=== PATIENT | male | born 1975 | race Hispanic/Latino ===

== ENCOUNTER → 2018-05-30 11:54 | Outpatient (CLI) | payer OTHER, SELFPAY ==
--- NOTE | 2018-05-30 | DI.MRI.S_ITS ---
PROCEDURE: MR LUMBAR SPINE WO/W CON INDICATIONS: LUMBAR STENOSIS WITH NEUROGENIC CLAUDICATION TECHNIQUE: Noncontrast sagittal T1 spin echo and T2 fast spin echo, sagittal STIR, axial T1 and T2 fast spin echo through the lumbar spine. In cases with scoliosis, additional coronal T2 fast spin echo may be performed. After the administration of contrast, sagittal and axial T1 spin echo with fat saturation through the lumbar spine. COMPARISON: [facility], MR, L-SPINE W&WO CONTRAST, 02/18/2017, 7:21. [facility], CR, L-SPINE 2-3 VIEWS, 12/06/2009, 9:43. [facility], CR, L-SPINE 2-3 VIEWS, 10/03/2017, 13:52. FINDINGS: Image quality: Diagnostic, with note made of motion artifact. Alignment and curvature: There is normal bony alignment. Marrow: Marrow is of normal overall signal. No acute vertebral body compression fractures. No suspicious marrow enhancement. Spinal cord: Conus medullaris terminates at the L1 level. Visualized spinal cord demonstrates normal signal, without suspicious enhancement. Paraspinous soft tissues: No paravertebral masses or abnormal enhancement. T12-L1: Normal appearance. L1-L2: Normal appearance. L2-L3: Mild loss of disc height is seen. Loss of disc signal is seen. Mild generalized disc bulge is seen. There is moderate left-sided and minimal right-sided neural foraminal narrowing seen. Minimal central canal narrowing is seen. An annular fissure is seen posteriorly, as on series 4 image 10. The previously seen disc extrusion is no longer seen. L3-L4: Moderate disc bulge is seen, with a mild central disc protrusion, as on series 5 image 21. Mild to moderate bilateral neural foraminal narrowing is seen, left worse than right. Mild to moderate central canal narrowing is seen. These degenerative changes have slightly progressed compared to the prior examination. L4-L5: Postoperative changes are seen at this level, now with bilateral pedicle screws and vertical fixation rods. A disc spacer is seen. There is associated susceptibility artifact. Apparent right hemilaminectomy changes are seen. Please correlate with operative history. Mild loss of disc height is seen. There is loss of disc signal. Moderate disc bulge is seen, with a mild central disc protrusion. Moderate bilateral neural foraminal narrowing is seen, right worse than left. No significant central canal narrowing is seen. No abnormal enhancement can be seen. The degenerative changes at this level have improved compared to the prior examination. L5-S1: The disc height is well-preserved. Loss of disc signal is seen at this level. Mild generalized disc bulge is seen. Mild facet joint hypertrophy is seen. No significant neural foraminal or central canal narrowing are seen. An annular fissure can be seen posteriorly, as on series 2 image 9. Stable from the prior study. IMPRESSION: Since the prior MRI examination, postoperative change has taken place at the L4-L5 level. No abnormal enhancement or other postoperative complication can be seen. Improvement in the disc extrusion at L2-L3 since the prior MRI. Slight progression of degenerative change at L3-L4 compared to the prior MRI. Dictated by: Chai Acevedo M.D. on 05/30/2018 at 13:02 Approved by: Chai Acevedo M.D. on 05/30/2018 at 13:11
== END ==
PROVIDERS: PCP Physician Assistant Medical; Visit Provider Physical Medicine & Rehabilitation
DX: M48.062 Spinal stenosis, lumbar region with neurogenic claudication (principal)
CPT/HCPCS: 72158; A9579

== ENCOUNTER → 2018-06-10 14:10 | Outpatient (CLI) | payer OTHER, SELFPAY ==
--- NOTE | 2018-06-10 | DI.CT.S_ITS ---
PROCEDURE: CT LUMBAR SPINE WO CON INDICATIONS: ARTHRITIS LUMBAR SPINE TECHNIQUE: Noncontrast 3 mm thick sections acquired from the T12 level to the sacrum. Sagittal and coronal reformats were constructed. For radiation dose reduction, the following was used: automated exposure control. COMPARISON: [facility], MR, MR LUMBAR SPINE WO/W CON, 05/30/2018, 12:18. [facility], CR, XR LUMBAR SPINE 2 OR 3 VIEWS, 05/08/2018, 13:38. FINDINGS: Image quality: Excellent. Bones: There is trace L2-L3 retrolisthesis.. Postsurgical changes compatible with L4 and L5 posterior and interbody fusion are noted. Orthopedic hardware is intact. No lucency is identified at the bone hardware interface. Postsurgical changes compatible with right L4 hemilaminectomy and right L4-L5 partial facetectomy noted. No acute vertebral body compression fractures. No suspicious lytic or blastic bony lesions. Central spinal caliber is of normal overall caliber. No pars defects. T12-L1: Normal appearance. L1-L2: Normal appearance. L2-L3: Disc height is normal. Mild, diffuse disc bulge. No central stenosis. Mild right and [id number] left neural foraminal narrowing. No definite neural impingement. L3-L4: Disc height is normal. Mild, diffuse disc bulge. Small central disc protrusion. Mild to moderate narrowing of the central canal. Mild bilateral neural foraminal narrowing. No definite neural impingement. L4-L5: Status post fusion. Mild left facet hypertrophy. No central stenosis. Moderate bilateral neural foraminal narrowing. No definite neural impingement. L5-S1: Disc height is normal. Mild, diffuse disc bulge. Mild bilateral facet hypertrophy. Mild narrowing of the central canal. No neural foraminal narrowing. No definite neural impingement. Soft tissues: No retroperitoneal masses or hematomas. Visualized aorta is normal in caliber. IMPRESSION: 1. Postsurgical changes compatible with L4-L5 fusion. 2. Mild multilevel degenerative disc disease. 3. Mild left L4-L5 and bilateral L5-S1 facet arthropathy. 4. Mild to moderate L3-L4 central canal narrowing. Mild L5-S1 central canal narrowing. 5. Moderate bilateral L4-L5 neural foraminal narrowing. Mild right and mild to moderate left L2-L3 neural femoral narrowing. Mild bilateral L3-L4 neural foraminal narrowing. Dictated by: Nereyda Bass MD, PhD on 06/10/2018 at 16:56 Approved by: Nereyda Bass MD, PhD on 06/10/2018 at 17:05
== END ==
PROVIDERS: PCP Physician Assistant Medical; Visit Provider Orthopaedic Surgery
DX: M47.816 Spondylosis without myelopathy or radiculopathy, lumbar region (principal); M47.817 Spondylosis without myelopathy or radiculopathy, lumbosacral region; M51.36 Other intervertebral disc degeneration, lumbar region; M51.37 Other intervertebral disc degeneration, lumbosacral region; M48.061 Spinal stenosis, lumbar region without neurogenic claudication; M48.07 Spinal stenosis, lumbosacral region; Z98.1 Arthrodesis status
CPT/HCPCS: 72131

== ENCOUNTER 2018-08-20 12:13 | Emergency (ER) | payer OTHER, SELFPAY ==
[2018-08-20 12:26] VITALS: BP 150/83; PULSE 91; RESP 20; TEMP 36.8; O2SAT 100; BMI 30.8
--- NOTE | 2018-08-20 12:39 | ED.GENADULT ---
HPI - General Adult General Chief complaint: Diabetic Problem Stated complaint: blood sugar all messed up Time Seen by Provider: 08/20/18 12:23 Source: patient Mode of arrival: ambulatory Limitations: no limitations History of Present Illness HPI narrative: This is a 43-year-old male comes to the emergency department with low blood sugar. Patient states he is not feeling well feels like he is almost withdrawing off of his depression medication. Patient states that he had a McMuffin at about 10 30 this morning he states that he is feeling fatigued and just not well. He denies any chest pain, no shortness of breath, no nausea or vomiting no recent GI issues. He states he does have some issues with starting and stopping urination and is also noticed some blood in his sperm occasionally. Urinary issues have been for several months. Blood in his semen has been for the last week or 2. Patient states that he takes metformin and had glipizide added on a couple months ago. He also had atorvastatin and a blood pressure medications started in the last month. His physician is also been weaning down his venlafaxine has not been helpful for his depression and they are going to start duloxetine tomorrow. Patient states that he was on Zoloft before but states it was not helping his depression. He has had suicidal ideation in the past but denies any currently. He denies any attempts or intent to hurt himself or others. He states he has been feeling quite depressed and has not been improving with medication. Patient has follow-up for a counselor but not until the end of the month. Related Data Home Medications Medication Instructions Recorded Confirmed metformin 1,000 mg PO BID #0 03/21/11 08/20/18 buspirone 7.5 mg PO BID #0 10/01/17 08/20/18 gabapentin [Neurontin] 1,200 mg PO BEDTIME #0 10/01/17 08/20/18 alprazolam 0.25 - 0.5 mg PO BID PRN 08/20/18 08/20/18 atorvastatin 20 mg PO BEDTIME 08/20/18 08/20/18 duloxetine 60 mg PO DAILY 08/20/18 08/20/18 glipizide 5 mg PO QAM 08/20/18 08/20/18 losartan 50 mg PO DAILY 08/20/18 08/20/18 tizanidine 2 - 4 mg PO BID PRN 08/20/18 08/20/18 venlafaxine 75 mg PO DAILYX3 08/20/18 08/20/18 Previous Rx's Medication Instructions Recorded ciprofloxacin HCl 500 mg PO BID #14 tab 08/20/18 Allergies Allergy/AdvReac Type Severity Reaction Status Date / Time No Known Allergies Allergy Uncoded 11/20/17 12:13 Review of Systems Review of Systems ROS Unobtainable: All systems reviewed & are unremarkable except as noted in HPI and below Constitutional Denies chills, Reports difficulty sleeping, Denies fever(s), Denies lethargy, Reports poor appetite and Denies weakness Cardiovascular Denies chest pain, Denies irregular heart rhythm, Denies lightheadedness, Denies palpitations, Denies dyspnea, Denies dyspnea on exertion and Denies orthopnea Respiratory Denies chest congestion, Denies cough, Denies dyspnea, Denies dyspnea on exertion and Denies wheezing Gastrointestinal Gastrointestinal: Denies abdominal pain, Denies bloating, Denies change in bowel habits, Denies constipation, Denies diarrhea, Denies nausea and Denies vomiting Genitourinary Reports hematospermia, Reports difficulty urinating, Denies genital pain, Denies dysuria, Denies flank pain, Denies scrotal swelling, Denies testicular pain, Denies urinary frequency, Reports urinary hesitancy, Denies urinary incontinence and Denies urinary urgency Musculoskeletal Reports back pain (Chronic) Integumentary/Breasts Denies rash Neurologic Denies tremor(s) and Denies weakness Psychiatric Reports abnormal sleep pattern, Reports change in appetite, Reports depression, Denies mood swings, Denies paranoia, Denies hallucinations, Denies homicidal ideation and Denies suicidal ideation Endocrine Denies palpitations Allergic/Immunologic Denies wheezing PFSH Medical History Dyslipidemia (Acute) Non-insulin dependent type 2 diabetes mellitus (Acute) Social History Smoking Status: Never smoker Exam Narrative Exam Narrative: GEN: well nourished, well appearing male, alert and oriented x 3, patient appears to be in mild distress. HEENT: Atraumatic, pupils are equal round reactive to light, extraocular movements are intact, nares are clear. HEART: Regular rate and rhythm without murmur, clicks, rubs. LUNGS:Lungs clear to auscultation, no wheezes, rales, crackles, chest moves symmetrically ABD:bowel sounds normal, soft, non-tender, no guarding, rebound, rigidity, no masses noted, no hepatosplenomegaly :No CVA tenderness MSCL: Non-tender, no muscle atrophy, muscles strength 5/5 upper and lower extremities, full range of motion, normal gait NEURO:CN 2-12 intact, sensation normal PSYCH: depression, no suicidal ideation but has had in recent past, no homicidal ideation/intent, no hallucinations, positive depression. Initial Vital Signs Initial Vital Signs: Vital Signs Temperature 98.3 F 08/20/18 12:26 Pulse Rate 91 H 08/20/18 12:26 Respiratory Rate 20 08/20/18 12:26 Blood Pressure 150/83 H 08/20/18 12:26 Pulse Oximetry 100 08/20/18 12:26 Course Orders Ordered: ED Orders 08/20/18 12:39 Ictotest Urine Stat Urinalysis and Microscopic Stat Urine Chlamydia Gonorrhea PCR Stat 08/20/18 12:40 Acetaminophen Stat Complete Blood Count AUTO DIFF Stat Comprehensive Metabolic Panel Stat Ethanol (ETOH) Stat Lipase Stat Partial Thromboplastin Time Stat Prothrombin Time INR Stat Salicylate Stat Thyroid Stimulating Hormone Stat Urine Drug Screen, Rapid Stat Discontinued Medications Sodium Chloride (Normal Saline 0.9%) 500 mls @ 1,000 mls/hr IV BOLUS ONE Stop: 08/20/18 13:01 Last Infusion: 08/20/18 15:29 Dose: 0 mls/hr Admin: 08/20/18 13:06 Dose: 1,000 mls/hr Vital Signs - 8 hr 08/20/18 12:26 08/20/18 13:00 08/20/18 13:50 Temperature 98.3 F Pulse Rate 91 H 83 75 Respiratory Rate 20 13 20 Blood Pressure 150/83 H Blood Pressure [Right Arm] 147/89 H 132/81 Pulse Oximetry 100 98 99 08/20/18 14:30 08/20/18 15:00 Temperature Pulse Rate 73 85 Respiratory Rate 19 20 Blood Pressure Blood Pressure [Right Arm] 133/86 129/80 Pulse Oximetry 97 98 Medical Decision Making Lab Data Lab results reviewed: Yes I reviewed the patient's lab results. Result diagrams: 08/20/18 12:40 08/20/18 12:40 Lab Results 08/20/18 08/20/18 08/20/18 Range/Units 12:39 12:39 12:40 WBC (4.5-11.0) X10^3/uL RBC (4.5-5.9) X10^6/uL Hgb (13.5-17.5) g/dL Hct (41-53) % MCV (80-100) fL MCH (26-34) PG MCHC (30-36) % RDW (11.6-14.8) % Plt Count (150-400) X10^3/uL Neut % (Auto) (50-75) % Lymph % (Auto) (25-40) % [place] % (Auto) (3-14) % Eos % (Auto) (2-4) % Baso % (Auto) (0-2) % Neut # (Auto) (4305-4097) /uL PT (10.1-12.7) SECONDS INR (0.9-1.3) APTT (26.4-36.2) SECONDS Sodium (137-145) mmol/L Potassium (3.4-5.1) mmol/L Chloride (98-107) mmol/L Carbon Dioxide (22-32) mmol/L BUN (9-20) mg/dL Creatinine (0.66-1.25) mg/dL Estimated GFR (>60) mL/min BUN/Creatinine Ratio (6-22) Glucose (70-100) mg/dL Calcium (8.4-10.2) mg/dL Total Bilirubin (0.2-1.3) mg/dL AST (17-59) IU/L ALT (21-72) IU/L Alkaline Phosphatase (38-126) U/L Total Protein (6.3-8.2) g/dL Albumin (3.5-5.0) g/dL Globulin (1.7-4.1) g/dL Albumin/Globulin Ratio (1.0-2.8) Lipase (23-300) U/L TSH (0.47-4.68) uIU/mL Urine Color Yellow Urine Appearance Clear Urine pH 5.0 (4.5-8.0) Ur Specific [place] >=1.030 H (1.000-1.035) Urine Protein Trace H (Negative) Urine Glucose (UA) Negative (Negative) g/dL Urine Ketones Trace H (NEGATIVE) Urine Occult Blood Negative (Negative) Urine Nitrate Negative (Negative) Urine Bilirubin 1+ H (NEGATIVE) Urine Ictotest Negative (Negative) Urine Urobilinogen 2.0 H (0.2) E.U./dL Ur Leukocyte Esterase Negative (NEGATIVE) Urine RBC None seen (0-5/HPF) Urine WBC 0-1/hpf (0-5/HPF) Ur Squamous Epith Cells 0-1 /hpf Calcium Oxalate Crystal Occasional H (None) Urine Bacteria Few (2-10) H (None) Urine Mucus 1+ H (Negative) Ur Culture Indicated? Cult not indicated Micro UA Comment Not Reportable Salicylates Cancelled Urine Opiates Screen (Negative) Ur Oxycodone Screen (Negative) Urine Methadone Screen (Negative) Acetaminophen Cancelled Ur Barbiturates Screen (Negative) U Tricyclic Antidepress (Negative) Ur Phencyclidine Scrn (Negative) Ur Amphetamines Screen (Negative) U Methamphetamines Scrn (Negative) Ur MDMA Scrn (Ecstasy) (Negative) U Benzodiazepines Scrn (Negative) Urine Cocaine Screen (Negative) U Marijuana (THC) Screen (Negative) Ethyl Alcohol Ur Chlamydia DNA (PCR) Not detected N gonorrhoeae DNA (PCR) Not detected 08/20/18 08/20/18 08/20/18 Range/Units 12:40 12:40 12:40 WBC 7.5 (4.5-11.0) X10^3/uL RBC 5.10 (4.5-5.9) X10^6/uL Hgb 15.3 (13.5-17.5) g/dL Hct 44.6 (41-53) % MCV 87.5 (80-100) fL MCH 30.1 (26-34) PG MCHC 34.4 (30-36) % RDW 13.9 (11.6-14.8) % Plt Count 236 (150-400) X10^3/uL Neut % (Auto) 68.0 (50-75) % Lymph % (Auto) 21.6 L (25-40) % [place] % (Auto) 9.3 (3-14) % Eos % (Auto) 0.7 L (2-4) % Baso % (Auto) 0.4 (0-2) % Neut # (Auto) 5100 (8540-7127) /uL PT (10.1-12.7) SECONDS INR (0.9-1.3) APTT (26.4-36.2) SECONDS Sodium (137-145) mmol/L Potassium (3.4-5.1) mmol/L Chloride (98-107) mmol/L Carbon Dioxide (22-32) mmol/L BUN (9-20) mg/dL Creatinine (0.66-1.25) mg/dL Estimated GFR (>60) mL/min BUN/Creatinine Ratio (6-22) Glucose (70-100) mg/dL Calcium (8.4-10.2) mg/dL Total Bilirubin (0.2-1.3) mg/dL AST (17-59) IU/L ALT (21-72) IU/L Alkaline Phosphatase (38-126) U/L Total Protein (6.3-8.2) g/dL Albumin (3.5-5.0) g/dL Globulin (1.7-4.1) g/dL Albumin/Globulin Ratio (1.0-2.8) Lipase (23-300) U/L TSH (0.47-4.68) uIU/mL Urine Color Urine Appearance Urine pH (4.5-8.0) Ur Specific [place] (1.000-1.035) Urine Protein (Negative) Urine Glucose (UA) (Negative) g/dL Urine Ketones (NEGATIVE) Urine Occult Blood (Negative) Urine Nitrate (Negative) Urine Bilirubin (NEGATIVE) Urine Ictotest (Negative) Urine Urobilinogen (0.2) E.U./dL Ur Leukocyte Esterase (NEGATIVE) Urine RBC (0-5/HPF) Urine WBC (0-5/HPF) Ur Squamous Epith Cells Calcium Oxalate Crystal (None) Urine Bacteria (None) Urine Mucus (Negative) Ur Culture Indicated? Micro UA Comment Salicylates Urine Opiates Screen Negative (Negative) Ur Oxycodone Screen Negative (Negative) Urine Methadone Screen Negative (Negative) Acetaminophen Ur Barbiturates Screen Negative (Negative) U Tricyclic Antidepress Negative (Negative) Ur Phencyclidine Scrn Negative (Negative) Ur Amphetamines Screen Negative (Negative) U Methamphetamines Scrn Negative (Negative) Ur MDMA Scrn (Ecstasy) Negative (Negative) U Benzodiazepines Scrn Positive H (Negative) Urine Cocaine Screen Negative (Negative) U Marijuana (THC) Screen Positive H (Negative) Ethyl Alcohol Cancelled Ur Chlamydia DNA (PCR) N gonorrhoeae DNA (PCR) 08/20/18 08/20/18 08/20/18 Range/Units 12:40 12:40 12:40 WBC (4.5-11.0) X10^3/uL RBC (4.5-5.9) X10^6/uL Hgb (13.5-17.5) g/dL Hct (41-53) % MCV (80-100) fL MCH (26-34) PG MCHC (30-36) % RDW (11.6-14.8) % Plt Count (150-400) X10^3/uL Neut % (Auto) (50-75) % Lymph % (Auto) (25-40) % [place] % (Auto) (3-14) % Eos % (Auto) (2-4) % Baso % (Auto) (0-2) % Neut # (Auto) (4398-2363) /uL PT 11.4 (10.1-12.7) SECONDS INR 1.0 (0.9-1.3) APTT 31 (26.4-36.2) SECONDS Sodium 142 (137-145) mmol/L Potassium 3.6 (3.4-5.1) mmol/L Chloride 103 (98-107) mmol/L Carbon Dioxide 25 (22-32) mmol/L BUN 17 (9-20) mg/dL Creatinine 0.80 (0.66-1.25) mg/dL Estimated GFR > 60.0 (>60) mL/min BUN/Creatinine Ratio 21.3 (6-22) Glucose 88 (70-100) mg/dL Calcium 10.2 (8.4-10.2) mg/dL Total Bilirubin 1.7 H (0.2-1.3) mg/dL AST 28 (17-59) IU/L ALT 29 (21-72) IU/L Alkaline Phosphatase 84 (38-126) U/L Total Protein 7.6 (6.3-8.2) g/dL Albumin 4.6 (3.5-5.0) g/dL Globulin 3.0 (1.7-4.1) g/dL Albumin/Globulin Ratio 1.5 (1.0-2.8) Lipase 120 (23-300) U/L TSH 0.83 (0.47-4.68) uIU/mL Urine Color Urine Appearance Urine pH (4.5-8.0) Ur Specific [place] (1.000-1.035) Urine Protein (Negative) Urine Glucose (UA) (Negative) g/dL Urine Ketones (NEGATIVE) Urine Occult Blood (Negative) Urine Nitrate (Negative) Urine Bilirubin (NEGATIVE) Urine Ictotest (Negative) Urine Urobilinogen (0.2) E.U./dL Ur Leukocyte Esterase (NEGATIVE) Urine RBC (0-5/HPF) Urine WBC (0-5/HPF) Ur Squamous Epith Cells Calcium Oxalate Crystal (None) Urine Bacteria (None) Urine Mucus (Negative) Ur Culture Indicated? Micro UA Comment Salicylates < 1.0 Urine Opiates Screen (Negative) Ur Oxycodone Screen (Negative) Urine Methadone Screen (Negative) Acetaminophen < 10 L Ur Barbiturates Screen (Negative) U Tricyclic Antidepress (Negative) Ur Phencyclidine Scrn (Negative) Ur Amphetamines Screen (Negative) U Methamphetamines Scrn (Negative) Ur MDMA Scrn (Ecstasy) (Negative) U Benzodiazepines Scrn (Negative) Urine Cocaine Screen (Negative) U Marijuana (THC) Screen (Negative) Ethyl Alcohol < 10 Ur Chlamydia DNA (PCR) N gonorrhoeae DNA (PCR) Point of Care Testing Glucose POC 111 Urine Dip Bedside Urine Glucose Negative Bedside Urine Bilirubin + 1 Bedside Urine Ketone +/- 5 Urine Specific [place] 1.030 Bedside Urine Occult Blood - Negative Bedside Urine pH 5.5 Bedside Urine Protein + 30 Bedside Urine Urobilinogen 1+ 2mg Bedside Urine Nitrite - Negative Bedside Urine Leukocytes +/- 15 Esterase Point of care testing: Point of Care Testing Glucose POC 111 Urine Dip Bedside Urine Glucose Negative Bedside Urine Bilirubin + 1 Bedside Urine Ketone +/- 5 Urine Specific [place] 1.030 Bedside Urine Occult Blood - Negative Bedside Urine pH 5.5 Bedside Urine Protein + 30 Bedside Urine Urobilinogen 1+ 2mg Bedside Urine Nitrite - Negative Bedside Urine Leukocytes +/- 15 Esterase MDM Narrative Medical decision making narrative: Patient comes in with hypoglycemia. His sugar is 62. Was given apple juice as well as some other fluid Um and re-evaluated. Patient could have some hypoglycemia secondary to his metformin in addition to his glipizide. He has also had multiple medication changes in the last month and they been weaned down his venlafaxine with the intent to start duloxetine. Patient and I discussed he has continued to have depression and has not been improving he is denying any active suicidal ideation but states he has had it fairly recently in the past. He has set up an appointment for outpatient therapy/counseling but not to the end of the month. Patient has been on Zoloft prior to the other medication. Patient only drink some apple juice and some milk he did want to eat the ache salad sandwich that we offered on recheck his sugar had come down to 59. Gave him a meat sandwich as well as some more juice waited an hour and rechecked and he is now in the 100s. Patient is feeling much better he states now that his sugars are more appropriate level he also feels less depressed although he still has his chronic depression. We discussed that it could be medication interaction versus other causes. He has been having some blood in his urine and has some bacteria although no clear infection but covered him with some antibiotics and he is following up with Urology. All questions were answered, patient feels comfortable returning home. We did give them the cp it number along with suicide hotline which he says he will use if he feels that he needs a little bit more closer mental healthcare then his next follow-up tomorrow with his primary care and his counseling appointment at the end of the month Discharge Plan Departure Patient Disposition: Home Clinical Impression: Hypoglycemia, Depression, Bacteriuria Discharge Date/Time: 08/20/18 15:55 Interventions: ED Discharge Assessment Last Done: 08/20/18 15:52 Instructions: DI for Hypoglycemia Activity Restrictions/Additional Instructions: Follow-up at your appointment tomorrow with your primary care provider. Let them know about her episode of hypoglycemia. This could be secondary to taking her metformin and glipizide together. You may continue your regular metformin dosage. Hold your glipizide morning dose. Take antibiotics until they are completely gone this is for bacteria in her urine. It appears you may possibly have a bacterial infection. Keep your follow-up appointment with Urology. Your prescription was sent to the [facility] in [place]. Below is the suicide hotline number, this is also the contact number for [facility] which is a mental health team that will do a next day appointments as well as phone appointments and close follow-up with patient's. If you're feeling suicidal or having suicidal thoughts, contact the suicide hotline: . Return for having any worsening symptoms, recurrent or multiple episodes of hypoglycemia, chest pain, shortness of breath, new persistent vomiting, passing out, diaphoresis or sweating, or other new or concerning symptoms. Prescriptions: New ciprofloxacin HCl 500 mg tablet 500 mg PO BID Qty: 14 RF: 0 No Action metformin 1,000 MG tablet 1,000 mg PO BID Qty: 0 RF: 0 buspirone 7.5 MG tablet 7.5 mg PO BID Qty: 0 RF: 0 gabapentin [Neurontin] 300 MG capsule 1,200 mg PO BEDTIME Qty: 0 RF: 0 losartan 50 mg tablet 50 mg PO DAILY RF: 0 atorvastatin 20 mg tablet 20 mg PO BEDTIME RF: 0 venlafaxine 75 mg tablet 75 mg PO DAILYX3 RF: 0 tizanidine 2 mg tablet 2 - 4 mg PO BID PRN (Reason: Spasms) RF: 0 glipizide 10 mg tablet 5 mg PO QAM RF: 0 alprazolam 0.5 mg tablet 0.25 - 0.5 mg PO BID PRN (Reason: Anxiety) RF: 0 duloxetine 60 mg capsule,delayed release(DR/EC) 60 mg PO DAILY RF: 0 Referrals: Berkley Jean PA-C [Primary Care Provider] -
[2018-08-20 12:58] LABS: RBC Urine None Seen (0-5/HPF)
[2018-08-20 13:00] VITALS: BP 147/89; PULSE 83; RESP 13; O2SAT 98
[2018-08-20 13:03] LABS: Appearance Urine UA CLEAR; Bilirubin Urine UA 1+ (NEGATIVE); Color Urine UA YELLOW; Glucose Urine UA NEGATIVE (Negative); Ketones Urine UA TRACE (NEGATIVE); Leukocyte Esterase Urine UA NEGATIVE (NEGATIVE); Nitrite Urine UA NEGATIVE (Negative); Occult Blood Urine UA NEGATIVE (Negative); Protein Urine UA TRACE (Negative); Specific Gravity Urine UA >=1.030 (1.000-1.035)
[2018-08-20] MEDS: SODIUM CHLORIDE 0.9% 500 ML 1000 ML IV (13:06)
[2018-08-20 13:09] LABS: Add Manual Diff / Slide Review NO; Basophils Percent Auto 0.4 % (0-2); Eosinophils Percent Auto 0.7 % (2-4); Hematocrit 44.6 % (41-53); Hemoglobin 15.3 g/dL (13.5-17.5); Lymphocytes Percent Auto 21.6 % (25-40); Mean Corpuscular HGB Conc 34.4 % (30-36); Mean Corpuscular Hemoglobin 30.1 PG (26-34); Mean Corpuscular Volume 87.5 fL (80-100); Monocytes Percent Auto 9.3 % (3-14); Neutrophils Absolute Auto 5100 /uL (1500-7000); Platelet Count 236 X10^3/uL (150-400); Prothrombin Time 11.4 SECONDS (10.1-12.7); Red Cell Distribution Width 13.9 % (11.6-14.8); White Blood Cell Count 7.5 X10^3/uL (4.5-11.0)
[2018-08-20 13:12] LABS: PTT Partial Thromboplastin Tim 31 SECONDS (26.4-36.2)
[2018-08-20 13:14] LABS: Acetaminophen < 10 ug/mL (10-30); Alanine Aminotransferase 29 IU/L (21-72); Albumin 4.6 g/dL (3.5-5.0); Albumin Globulin Ratio 1.5 (1.0-2.8); Alkaline Phosphatase 84 U/L (38-126); Aspartate Aminotransferase 28 IU/L (17-59); BUN Creatinine Ratio 21.3 (6-22); Bilirubin Total 1.7 mg/dL (0.2-1.3); Blood Urea Nitrogen 17 mg/dL (9-20); Calcium 10.2 mg/dL (8.4-10.2); Carbon Dioxide 25 mmol/L (22-32); Chloride 103 mmol/L (98-107); Estimated Glomerular Filt Rate > 60.0 mL/min (>60); Ethanol (ETOH) < 10 mg/dL; Glucose 88 mg/dL (70-100); HEMOLYSIS < 15 (0-50); Lipase 120 U/L (23-300); Potassium 3.6 mmol/L (3.4-5.1); Sodium 142 mmol/L (137-145); Total Protein 7.6 g/dL (6.3-8.2)
[2018-08-20 13:17] LABS: Salicylate < 1.0 mg/dL (<20)
[2018-08-20 13:17] LABS: Ictotest Urine Negative (Negative); Squamous Epithelial Cell Urine 0-1 /HPF; WBC Urine 0-1/HPF (0-5/HPF)
[2018-08-20 13:18] LABS: Bacteria Urine Few (2-10); Calcium Oxalate Crystals Urine Occasional; Culture Indicated Urine Cult Not Indicated; Mucus Urine 1+ (Negative)
[2018-08-20 13:20] LABS: Urine Amphetamines Negative (Negative); Urine Barbiturates Negative (Negative); Urine Benzodiazepines Positive (Negative); Urine Cocaine Negative (Negative); Urine MDMA Negative (Negative); Urine Methadone Negative (Negative); Urine Methamphetamines Negative (Negative); Urine Morphine/Opi cutoff 2000 Negative (Negative); Urine Oxycodone Negative (Negative); Urine Phencyclidine Negative (Negative); Urine Tetrahydrocannabinol Positive (Negative); Urine Tricyclic Antidepressant Negative (Negative)
[2018-08-20 13:50] VITALS: BP 132/81; PULSE 75; RESP 20; O2SAT 99
[2018-08-20 14:01] LABS: Thyroid Stimulating Hormone 0.83 uIU/mL (0.47-4.68)
[2018-08-20 14:30] VITALS: BP 133/86; PULSE 73; RESP 19; O2SAT 97
[2018-08-20 14:31] LABS: Urine N gonorrhoeae NOT DETECTED
[2018-08-20 14:35] LABS: Urine Chlamydia NOT DETECTED
[2018-08-20 15:00] VITALS: BP 129/80; PULSE 85; RESP 20; O2SAT 98
== END 2018-08-20 15:55 | disposition home or self-care (01) ==
PROVIDERS: Emergency Provider Emergency Medicine; PCP Physician Assistant Medical
DX: E16.2 Hypoglycemia, unspecified (principal); R82.71 Bacteriuria; F32.9 Major depressive disorder, single episode, unspecified
CPT/HCPCS: 36591; 80053; 80305; 80320; 80329; 81001; 81003; 82962; 83690; 84443; 85025; 85610; 85730; 87491; 87591; 99283; G0480

== ENCOUNTER → 2019-03-26 16:30 | Outpatient (CLI) | payer OTHER, SELFPAY ==
[2019-03-26 17:34] LABS: Hemoglobin A1C% w Est Avg Glu 6.4 % (4.0-6.0)
[2019-03-26 17:59] LABS: Alanine Aminotransferase 17 IU/L (21-72); Albumin 4.5 g/dL (3.5-5.0); Albumin Globulin Ratio 1.6 (1.0-2.8); Alkaline Phosphatase 68 U/L (38-126); Aspartate Aminotransferase 25 IU/L (17-59); BUN Creatinine Ratio 21.3 (6-22); Bilirubin Total 1.5 mg/dL (0.2-1.3); Blood Urea Nitrogen 17 mg/dL (9-20); Calcium 9.9 mg/dL (8.4-10.2); Carbon Dioxide 29 mmol/L (22-32); Chloride 99 mmol/L (98-107); Estimated Glomerular Filt Rate > 60.0 mL/min (>60); Globulin 2.9 g/dL (1.7-4.1); Glucose 103 mg/dL (70-100); HEMOLYSIS < 15 (0-50); Potassium 4.3 mmol/L (3.4-5.1); Sodium 138 mmol/L (137-145); Total Protein 7.4 g/dL (6.3-8.2)
[2019-03-26 18:00] LABS: Creatinine Urine Random 176.4 mg/dL
[2019-03-26 18:04] LABS: Microalbumi Creatinin Ratio Ur 31.1 ug/mg CR (<30); Microalbumin Urine Random 5.5 mg/dL (0-1.6)
== END ==
PROVIDERS: PCP Physician Assistant Medical; Visit Provider Hospitalist
DX: E11.9 Type 2 diabetes mellitus without complications (principal)
CPT/HCPCS: 36415; 80053; 82043; 82570; 83036

== ENCOUNTER 2019-08-07 13:05 | Emergency (ER) | payer OTHER, SELFPAY ==
[2019-08-07 13:15] VITALS: BP 124/85; PULSE 75; RESP 15; TEMP 36.7; O2SAT 99; BMI 28.7
[2019-08-07 13:34] LABS: Add Manual Diff / Slide Review NO; Basophils Absolute Auto 0 /uL (0-100); Basophils Percent Auto 0.6 % (0-2); Eosinophils Absolute Auto 100 /uL (0-450); Eosinophils Percent Auto 1.5 % (2-4); Hemoglobin 16.1 g/dL (13.5-17.5); Lymphocytes Absolute Auto 1700 /uL (1100-4500); Lymphocytes Percent Auto 29.7 % (25-40); Mean Corpuscular HGB Conc 35.1 % (30-36); Mean Corpuscular Hemoglobin 30.5 PG (26-34); Mean Corpuscular Volume 86.9 fL (80-100); Monocytes Absolute Auto 500 /uL (0-900); Monocytes Percent Auto 9.3 % (3-14); Neutrophils Absolute Auto 3300 /uL (1500-7000); Neutrophils Percent Auto 58.9 % (50-75); Platelet Count 195 X10^3/uL (150-400); Red Cell Distribution Width 13.9 % (11.6-14.8); White Blood Cell Count 5.6 X10^3/uL (4.5-11.0)
[2019-08-07 13:41] LABS: PTT Partial Thromboplastin Tim 32 SECONDS (26.4-36.2)
[2019-08-07 13:45] LABS: Alanine Aminotransferase 18 IU/L (<50); Albumin 4.7 g/dL (3.5-5.0); Albumin Globulin Ratio 1.6 (1.0-2.8); Alkaline Phosphatase 76 U/L (38-126); Aspartate Aminotransferase 24 IU/L (17-59); BUN Creatinine Ratio 18.8 (6-22); Bilirubin Total 1.4 mg/dL (0.2-1.3); Blood Urea Nitrogen 15 mg/dL (9-20); Calcium 9.8 mg/dL (8.4-10.2); Carbon Dioxide 31 mmol/L (22-32); Chloride 101 mmol/L (98-107); Estimated Glomerular Filt Rate > 60.0 mL/min (>60); Globulin 2.9 g/dL (1.7-4.1); Glucose 139 mg/dL (70-100); HEMOLYSIS < 15 (0-50); Lipase 105 U/L (23-300); Potassium 4.3 mmol/L (3.4-5.1); Sodium 139 mmol/L (137-145); Total Protein 7.6 g/dL (6.3-8.2)
[2019-08-07 14:34] VITALS: BP 131/78; PULSE 68; RESP 10; O2SAT 100
--- NOTE | 2019-08-07 14:45 | DI.US.S_ITS ---
PROCEDURE: US ABDOMEN LIMITED INDICATIONS: RIGHT UPPER QUADRANT PAIN TECHNIQUE: Real-time focused scanning was performed of the abdomen, with image documentation. COMPARISON: None. FINDINGS: Limited evaluation at clinician request. At the right upper quadrant the hepatic echotexture is dense, reduced in quality of visualization deep within the liver. Note is made of at least 2 non-mobile echogenic foci within the gallbladder neck which appears impacted, measuring up to 6 mm. The gallbladder wall is at the upper limits of normal at 3 mm. No tenderness on sonographic palpation is found. IMPRESSION: Limited evaluation, large patient body habitus, bowel gas and hyperechoic liver echotexture reduces quality of visualization. Within the gallbladder neck area there are 2 non-mobile suspected gallstones within the gallbladder neck. The gallbladder wall is at the upper limits of normal in thickness. Subsequent nuclear medicine HIDA scan may be warranted to determine whether the cystic duct is patent or obstructed. Dictated by: Gelacio Gomez M.D. on 08/07/2019 at 15:17 Approved by: Gelacio Gomez M.D. on 08/07/2019 at 15:20
[2019-08-07 15:36] VITALS: BP 128/86; PULSE 82; RESP 20; O2SAT 100
--- NOTE | 2019-08-07 16:16 | ED_ITS ---
HPI - Abdominal Pain <NATALI Louis - Last Filed: 08/07/19 16:20> General Chief Complaint: Abdominal Pain Stated Complaint: severe abdominal issues and low back pain Time Seen by Provider: 08/07/19 14:34 Source: patient Mode of arrival: Ambulatory Limitations: no limitations History of Present Illness HPI narrative: The patient is a 44-year-old male nonsmoker with history of gastric sleeve surgery who presents with a chief complaint of right upper quadrant pain after eating for the past few days. He states it started on Saturday. No fevers, no vomiting, no diarrhea. States he has had soft stools. States he has had some nausea, but he just rests and it goes away. He states he still has his gallbladder. Declines anything for nausea or pain upon arrival to the emergency department. Related Data Home Medications Medication Instructions Recorded Confirmed metformin 1,000 mg PO BID #0 03/21/11 08/07/19 buspirone 7.5 mg PO BID #0 10/01/17 08/07/19 alprazolam 0.25 - 0.5 mg PO BID PRN 08/20/18 03/26/19 atorvastatin 20 mg PO BEDTIME 08/20/18 03/26/19 tizanidine 2 - 4 mg PO BID PRN 08/20/18 08/07/19 desvenlafaxine succinate 50 mg 50 mg PO BID 03/20/19 08/07/19 tablet,extended release 24 hr gabapentin 300 mg capsule 600 mg PO DAILY 03/20/19 08/07/19 tolterodine 4 mg capsule,extended 4 mg PO DAILY 03/20/19 08/07/19 release 24 hr tamsulosin 0.4 mg capsule 0.4 mg PO BEDTIME 03/26/19 08/07/19 Allergies Allergy/AdvReac Type Severity Reaction Status Date / Time No Known Drug Allergies Allergy Verified 08/07/19 13:15 Review of Systems <NATALI Louis - Last Filed: 08/07/19 16:20> Review of Systems Narrative: GENERAL: Denies chills, fatigue, malaise, fever, sweats. HEENT: Denies sinus pain, ear pain, sore throat, difficulty swallowing, dizziness. RESPIRATORY: Denies dyspnea, cough, wheezing, hemoptysis, sputum. CARDIOVASCULAR: Denies chest pain, palpitations, orthopnea, edema, GASTROINTESTINAL: See HPI : Denies dysuria, frequency, incontinence, hematuria, urinary retention. MUSCULOSKELETAL: denies weakness, joint pain, or bony pain SKIN: Denies rash, skin lesions, or other NEUROLOGIC: Denies weakness, headache, numbness, change in speech, confusion, seizures, incoordination. PSYCHIATRIC: No concerning psychosocial issues. 12 point review of systems is negative except for those stated above Patient History <NATALI Louis - Last Filed: 08/07/19 16:20> Medical History Depression (Acute) Dyslipidemia (Acute) Non-insulin dependent type 2 diabetes mellitus (Acute) Family History Father Diabetes mellitus Kidney failure Social History Smoking Status: Never smoker Smoking Status: Never smoker alcohol intake frequency: holidays/special occasions only Substance Use Type: marijuana Exam <NATALI Louis - Last Filed: 08/07/19 16:20> Narrative Exam Narrative: GENERAL: This is a well-nourished, well-developed patient, in no acute distress HEAD: Atraumatic. Normocephalic. No temporal or scalp tenderness. EYES: Pupils equal round and reactive. Extraocular motions intact. No scleral icterus. No injection or drainage. ENT: Nose without bleeding, purulent drainage or septal hematoma. Throat without erythema, tonsillar hypertrophy or exudate. Uvula midline. Airway patent. NECK: Trachea midline. No JVD or lymphadenopathy. Supple, nontender, no meningeal signs. CARDIOVASCULAR: Regular rate and rhythm without murmurs, gallops, or rubs. RESPIRATORY: Clear to auscultation. Breath sounds equal bilaterally. No wheezes, rales, or rhonchi. No cough. No increased respiratory effort. No accessory muscle use. GASTROINTESTINAL: Abdomen soft, nondistended. No hepato-splenomegaly, or palpable masses. No guarding. Active bowel sounds all 4 quadrants. Diffuse pain to right upper quadrant palpation. Positive Dhaliwal sign. EXTREMITIES: No clubbing, cyanosis, or edema. No joint tenderness, effusion, or edema noted. BACK: Nontender without deformity or crepitance. No flank tenderness. NEURO: AOx3. SKIN: No rash or erythema on visible skin Initial Vital Signs Initial Vital Signs: Vital Signs Temperature 98.1 F 08/07/19 13:15 Pulse Rate 75 08/07/19 13:15 Respiratory Rate 15 08/07/19 13:15 Blood Pressure 124/85 08/07/19 13:15 Pulse Oximetry 99 08/07/19 13:15 <Carmina Fulton DO - Last Filed: 08/10/19 08:12> Initial Vital Signs Initial Vital Signs: Vital Signs Temperature 98.1 F 08/07/19 13:15 Pulse Rate 75 08/07/19 13:15 Respiratory Rate 15 08/07/19 13:15 Blood Pressure 124/85 08/07/19 13:15 Pulse Oximetry 99 08/07/19 13:15 Course <MARGARETH LouisBC - Last Filed: 08/07/19 16:20> Orders Ordered: ED Orders 08/07/19 13:23 Complete Blood Count AUTO DIFF Stat Comprehensive Metabolic Panel Stat Lipase Stat Partial Thromboplastin Time Stat Prothrombin Time INR Stat 08/07/19 14:45 US abdomen limited Stat 08/07/19 15:45 Urine Culture Stat Vital Signs Vital signs: Vital Signs - 8 hr 08/07/19 13:15 08/07/19 14:34 08/07/19 15:36 Temperature 98.1 F Pulse Rate 75 68 82 Respiratory Rate 15 10 L 20 Blood Pressure 124/85 Blood Pressure [Right Arm] 131/78 128/86 Pulse Oximetry 99 100 100 <Carmina Fulton DO - Last Filed: 08/10/19 08:12> Orders Ordered: ED Orders 08/07/19 13:23 Complete Blood Count AUTO DIFF Stat Comprehensive Metabolic Panel Stat Lipase Stat Partial Thromboplastin Time Stat Prothrombin Time INR Stat 08/07/19 14:45 US abdomen limited Stat 08/07/19 15:45 Urine Culture Stat Vital Signs Vital signs: Vital Signs - 8 hr 08/07/19 13:15 08/07/19 14:34 08/07/19 15:36 Temperature 98.1 F Pulse Rate 75 68 82 Respiratory Rate 15 10 L 20 Blood Pressure 124/85 Blood Pressure [Right Arm] 131/78 128/86 Pulse Oximetry 99 100 100 MDM - Abdominal Pain <Queta Batista, [employer]- - Last Filed: 08/07/19 16:20> Lab Data Result diagrams: 08/07/19 13:23 08/07/19 13:23 Labs: Lab Results 08/07/19 08/07/19 08/07/19 Range/Units 13:23 13:23 13:23 WBC 5.6 (4.5-11.0) X10^3/uL RBC 5.30 (4.5-5.9) X10^6/uL Hgb 16.1 (13.5-17.5) g/dL Hct 46.0 (41-53) % MCV 86.9 (80-100) fL MCH 30.5 (26-34) PG MCHC 35.1 (30-36) % RDW 13.9 (11.6-14.8) % Plt Count 195 (150-400) X10^3/uL Neut % (Auto) 58.9 (50-75) % Lymph % (Auto) 29.7 (25-40) % [place] % (Auto) 9.3 (3-14) % Eos % (Auto) 1.5 L (2-4) % Baso % (Auto) 0.6 (0-2) % Neut # (Auto) 3300 (4247-6352) /uL Lymph # (Auto) 1700 (6742-5211) /uL [place] # (Auto) 500 (0-900) /uL Eos # (Auto) 100 (0-450) /uL Baso # (Auto) 0 (0-100) /uL PT 11.0 (10.1-12.7) SECONDS INR 1.0 (0.9-1.3) APTT 32 (26.4-36.2) SECONDS Sodium 139 (137-145) mmol/L Potassium 4.3 (3.4-5.1) mmol/L Chloride 101 (98-107) mmol/L Carbon Dioxide 31 (22-32) mmol/L BUN 15 (9-20) mg/dL Creatinine 0.80 (0.66-1.25) mg/dL Estimated GFR > 60.0 (>60) mL/min BUN/Creatinine Ratio 18.8 (6-22) Glucose 139 H (70-100) mg/dL Calcium 9.8 (8.4-10.2) mg/dL Total Bilirubin 1.4 H (0.2-1.3) mg/dL AST 24 (17-59) IU/L ALT 18 (<50) IU/L Alkaline Phosphatase 76 (38-126) U/L Total Protein 7.6 (6.3-8.2) g/dL Albumin 4.7 (3.5-5.0) g/dL Globulin 2.9 (1.7-4.1) g/dL Albumin/Globulin Ratio 1.6 (1.0-2.8) Lipase 105 (23-300) U/L Point of care testing: Urine Dip Bedside Urine Glucose 250 mg/dl Bedside Urine Bilirubin + 1 Bedside Urine Ketone +/- 5 Urine Specific [place] 1.020 Bedside Urine Occult Blood - Negative Bedside Urine pH 6.5 Bedside Urine Protein +/- 15 Bedside Urine Urobilinogen +/- 1mg Bedside Urine Nitrite - Negative Bedside Urine Leukocytes - Negative Esterase Imaging Data US - abdomen: Radiologist's Impression: Chart Viewer Diagnostics DATE TYPE STATUS AUTHOR Hx 08/07/19 14:45 Gelacio Gomez 06/10/18 00:00 Nereyda Bass 05/30/18 00:00 Chai Acevedo Matthew J 44, M1 [facility], [facility] ED R06 177.8cm 90.718kg BMI: 28.7kg/m? Abdominal Pain Search Chart No Data to Display ONSET Today 15:36 Quang Whipple 44 M 1975 [place] [address] Ultrasound Report Signed Patient: Whipple,Quang JMR#: [id number] : 1975Acct:[id number] Age/Sex: 44 / MDate of Service: 08/07/19 Loc: ED Accession Number: [id number] Procedure: US abdomen limited Ordering Provider: Queta Batista- PROCEDURE: US ABDOMEN LIMITED INDICATIONS: RIGHT UPPER QUADRANT PAIN TECHNIQUE: Real-time focused scanning was performed of the abdomen, with image documentation. COMPARISON: None. FINDINGS: Limited evaluation at clinician request. At the right upper quadrant the hepatic echotexture is dense, reduced in quality of visualization deep within the liver. Note is made of at least 2 non-mobile echogenic foci within the gallbladder neck which appears impacted, measuring up to 6 mm. The gallbladder wall is at the upper limits of normal at 3 mm. No tenderness on sonographic palpation is found. IMPRESSION: Limited evaluation, large patient body habitus, bowel gas and hyperechoic liver echotexture reduces quality of visualization. Within the gallbladder neck area there are 2 non-mobile suspected gallstones within the gallbladder neck. The gallbladder wall is at the upper limits of normal in thickness. Subsequent nuclear medicine HIDA scan may be warranted to determine whether the cystic duct is patent or obstructed. Dictated by: Gelacio Gomez M.D. on 08/07/2019 at 15:17 Approved by: Gelacio Gomez M.D. on 08/07/2019 at 15:20 MDM Narrative Medical decision making narrative: Patient is a 44-year-old male who presents wi th a chief complaint of right upper quadrant pain for the past several days. He is afebrile, declines anything for nausea, or pain in the emergency department. Given his exam combined with the postprandial aspect of his pain, I'm suspicious of a gallbladder etiology. Ultrasound shows gallstones, with no evidence of cholecystitis. Image quality is poor given patient habitus, however his reassur ing labs on lack of elevated liver enzymes decreased concern about obstruction. Additionally the patient's bilirubin is 1.4, which correlates with his previous history of 1.5 I discussed at length the importance of following up with primary care provider, dietary changes, and gave him contact information for [facility]. The patient appears upset that he does not need surgery today given that his deductible has been met this year. I did offer the patient pain and nausea medications, which she declined. I discussed at length the importance of following up with primary care provider. Discussed return precautions the emergency department including fever, inability keep down fluids, abdominal pain with fever cetera. Patient has no questions or concerns upon discharge and states understanding of return precautions as well as follow-up care. <Carmina Fulton, DO - Last Filed: 08/10/19 08:12> Lab Data Labs: Lab Results 08/07/19 08/07/19 08/07/19 Range/Units 13:23 13:23 13:23 WBC 5.6 (4.5-11.0) X10^3/uL RBC 5.30 (4.5-5.9) X10^6/uL Hgb 16.1 (13.5-17.5) g/dL Hct 46.0 (41-53) % MCV 86.9 (80-100) fL MCH 30.5 (26-34) PG MCHC 35.1 (30-36) % RDW 13.9 (11.6-14.8) % Plt Count 195 (150-400) X10^3/uL Neut % (Auto) 58.9 (50-75) % Lymph % (Auto) 29.7 (25-40) % [place] % (Auto) 9.3 (3-14) % Eos % (Auto) 1.5 L (2-4) % Baso % (Auto) 0.6 (0-2) % Neut # (Auto) 3300 (1037-9173) /uL Lymph # (Auto) 1700 (2129-8606) /uL [place] # (Auto) 500 (0-900) /uL Eos # (Auto) 100 (0-450) /uL Baso # (Auto) 0 (0-100) /uL PT 11.0 (10.1-12.7) SECONDS INR 1.0 (0.9-1.3) APTT 32 (26.4-36.2) SECONDS Sodium 139 (137-145) mmol/L Potassium 4.3 (3.4-5.1) mmol/L Chloride 101 (98-107) mmol/L Carbon Dioxide 31 (22-32) mmol/L BUN 15 (9-20) mg/dL Creatinine 0.80 (0.66-1.25) mg/dL Estimated GFR > 60.0 (>60) mL/min BUN/Creatinine Ratio 18.8 (6-22) Glucose 139 H (70-100) mg/dL Calcium 9.8 (8.4-10.2) mg/dL Total Bilirubin 1.4 H (0.2-1.3) mg/dL AST 24 (17-59) IU/L ALT 18 (<50) IU/L Alkaline Phosphatase 76 (38-126) U/L Total Protein 7.6 (6.3-8.2) g/dL Albumin 4.7 (3.5-5.0) g/dL Globulin 2.9 (1.7-4.1) g/dL Albumin/Globulin Ratio 1.6 (1.0-2.8) Lipase 105 (23-300) U/L Point of care testing: Urine Dip Bedside Urine Glucose 250 mg/dl Bedside Urine Bilirubin + 1 Bedside Urine Ketone +/- 5 Urine Specific [place] 1.020 Bedside Urine Occult Blood - Negative Bedside Urine pH 6.5 Bedside Urine Protein +/- 15 Bedside Urine Urobilinogen +/- 1mg Bedside Urine Nitrite - Negative Bedside Urine Leukocytes - Negative Esterase Discharge Plan Departure Patient Disposition: Home Clinical Impression: Cholelithiases Qualifiers: Cholelithiasis location: gallbladder Cholecystitis presence: without cholecystitis Biliary obstruction: without biliary obstruction Qualified Code(s): K80.20 - Calculus of gallbladder without cholecystitis without obstruction Discharge Date/Time: 08/07/19 16:19 Instructions: Gallstones (Alternative Therapy), DI for Gallstones Activity Restrictions/Additional Instructions: Today your ultrasound shows at least 2 gallstones. However there is no sign of infection or need for immediate surgery Please follow-up with primary care provider as well as [facility] Your lab work is very reassuring today. Please monitor for inability keep down fluids, severe pain, abdominal pain with fever etcetera come back to the emergency department for any acute concerns Prescriptions: No Action tolterodine 4 mg capsule,extended release 24hr 4 mg PO DAILY RF: 0 desvenlafaxine succinate [Pristiq] 50 mg tablet extended release 24 hr 50 mg PO BID RF: 0 gabapentin 300 mg capsule 600 mg PO DAILY RF: 0 metformin 1,000 MG tablet 1,000 mg PO BID Qty: 0 RF: 0 buspirone 7.5 MG tablet 7.5 mg PO BID Qty: 0 RF: 0 tamsulosin [Flomax] 0.4 mg capsule 0.4 mg PO BEDTIME RF: 0 atorvastatin 20 mg tablet 20 mg PO BEDTIME RF: 0 tizanidine 2 mg tablet 2 - 4 mg PO BID PRN (Reason: Spasms) RF: 0 alprazolam 0.5 mg tablet 0.25 - 0.5 mg PO BID PRN (Reason: Anxiety) RF: 0 Referrals: [facility] [Provider Group] [facility] [Provider Group] Berkley Jean PA-C [Primary Care Provider] - Shanika Bello DO [Non-Staff] -
== END 2019-08-07 16:19 | disposition home or self-care (01) ==
PROVIDERS: Emergency Medicine; Emergency Provider Nurse Practitioner Family; PCP Physician Assistant Medical
DX: K80.20 Calculus of gallbladder without cholecystitis without obstruction (principal)
CPT/HCPCS: 36415; 76705; 80053; 81003; 83690; 85025; 85610; 85730; 99283; 99284

== ENCOUNTER 2019-08-26 07:24 | Day surgery (SDC) | payer OTHER, SELFPAY ==
[2019-08-14 08:29] VITALS: BMI 29.9
[2019-08-26] VITALS (11 sets, daily range): BP systolic 106–144; BP diastolic 66–85; PULSE 63–74; RESP 11–17; TEMP 36–36.4; O2SAT 95–99; BMI 29.9
--- NOTE | 2019-08-26 | PATH_ITS ---
[facility] Accession Number: [id number] . 01 Material submitted: . gallbladder - GALLBLADDER AND CONTENTS . 02 Diagnosis: Gallbladder and Contents, Cholecystectomy: Cholelithiasis. No evidence of neoplasm. MRV 08/28/2019 1304 Local . 02 Electronically signed: . Quang Price MD, PhD, Pathologist NPI- [id number] . 01 Gross description: . Received in formalin, labeled gallbladder and contents, is an intact gallbladder (length-9.3 cm, diameter-3.0 cm) with green smooth shiny serosa and a patent cystic duct. No lymph nodes are identified. The lumen contains green viscous bile and multiple brown smooth friable calculi (3.3 x 0.9 x 0.7 cm in aggregate). The mucosa is pale green and rough. The wall is up to 0.1 cm thick. No nodules, masses or lesion are identified. Section code: (A1) cystic duct resection margin and two serial sections from the body; (A2) two longitudinal sections from the fundus. ([id number]) /MRV 08/27/2019 1142 Local . 02 Pathologist provided ICD-10: K80.20 . 02 CPT . 901977 Performed at: 01 [facility] [address], [place], [place] [id number] MD Kam Oquendo MD Phone: [phone] Performed at: 02 [facility] [address] [place], [place] [id number] MD Marie Langley MD Phone: [phone]
[2019-08-26] MEDS: LACTATED RINGERS 1,000 ML 42 ML IV (08:26)
--- NOTE | 2019-08-26 08:34 | PM.PREOP ---
Pre-operative Note Interval Note History & Physical reviewed/Exam performed by Physician: Yes Changes to H&P: No
[2019-08-26] MEDS: ACETAMINOPHEN 325 MG TABLET 975 MG PO (08:42)
[2019-08-26] MEDS: GABAPENTIN 300 MG CAPSULE PO (08:43)
[2019-08-26] MEDS: PIPERACILLIN-TAZO 3.375 GM/50 ML FROZ.PIGGY IV (08:55)
--- NOTE | 2019-08-26 09:26 | SUR.OPER ---
Supine on padded OR bed, head on pillow, arms secured on padded arm boards at <90 degrees abduction, legs uncrossed, safety belt at thigh, tape over blanket over lower legs.
[2019-08-26] MEDS: BUPIVACAINE 0.25% W/ EPI (PF) 10 ML VIAL 20 ML INJ (09:58)
[2019-08-26] MEDS: fentaNYL 100 MCG/2 ML INJ IV (10:59)
[2019-08-26] MEDS: LACTATED RINGERS 1,000 ML 100 ML IV (11:04)
--- NOTE | 2019-08-26 11:04 | PM.OP.1 ---
Operative Date/Time/Diagnoses Date of procedure: 08/26/19 Time of procedure: 07:45 Pre-op diagnosis: symptomatic cholelithiasis Post-op diagnosis: same Procedure & Clinicians Procedure: Laparoscopic cholecystectomy, intraoperative fluorescene cholangiogram Same procedure as scheduled: Yes Indications: symptomatic cholelithiasis Surgeon: Marie Medel Click Yes if Unassisted: Yes Anesthesia Type: General Operative Notes Findings: Thickened gall bladder, good critical view of safety Specimen(s): other (gall bladder) Estimated Blood Loss (mL): 5 Blood products transfused: none Procedure in detail: The patient was brought into the operating room and placed supine on the OR table. Sequential compression devices were placed on both legs and turned on. Appropriate perioperative antibiotics were given prior to the start of surgery. General anesthesia was induced the patient was intubated. The abdomen was prepped and draped in sterile fashion. Surgical time-out was conducted. Local anesthetic was injected under the skin just superior to the umbilicus and a 5 mm vertical incision was made at this site. The umbilical stalk was grasped with a Savana and elevated. A Veress needle was passed through the fascia into proper position. The position was tested with a saline drop test which was not indicative of intra-abdminal position. After two attempts, I decided to place a zero degree scope without insufflation. A 5 mm optical trocar was then placed under direct vision using a 5 mm 0 degree scope, observing each layer of the abdominal wall during advancedment of the trocar. Once the camera was inside the abdomen, we insufflated to 15mmHg, once proper insufflation was established I took a look around. There was no injury from port placement. Two additional ports were placed in a similar fashion in the right upper quadrant and a 10 mm port was placed in the epigastrium. Through the 2 lateral ports the gallbladder was grasped and elevated and the infundibulum was retracted laterally to the patient's right. The gall bladder was elongated and thickened. The gall bladder hilum was exposed by retraction, which allowed for dissection of the cystic duct and cystic artery. There is quite a bit of dense scar tissue throughout the gallbladder hilum. This required tedious careful dissection to avoid injury to the bile ducts. Indocyanine Green was given intraveneously prior to the start of the case. We then used the fluoro lamp to perform an ICG cholanogiography in order to evaluate the bile ducts. The cystic duct was seen anteriorly in the hilum, and the common bile duct was seen below, running in the nica hepatis. No aberrant ducts were seen. Careful dissection progressed based on the cholanogioraphy findings. Once the cystic duct and artery were completely dissected out and I was able to see liver behind and between both structures without any other structures in the way, giving us the critical view of safety. At this point I doubly clipped both structures on the patient's side and put a single clip on the gallbladder side of both the cystic duct and artery. Both structures were then divided with laparoscopic [place]. Following this the gallbladder was gradually dissected free from the liver. There was quite a bit of hypervascularity of the scar tissue between the gallbladder and the liver. Several small vessels had to be controlled with cautery. Once the gallbladder was entirely freed, it was placed inside an Endo-Catch bag and removed through the epigastric port site. I did not have to enlarge the epigastric site in order to get the gallbladder out. Once it was out and passed off to the back table I then took another look inside the abdomen. I suctioned clean any remaining blood or fluid on the lateral side of the liver and in the subhepatic space. There was no active bleeding or leaking of bile from the gallbladder fossa or from the clipped stumps of the cystic duct and artery. At this point the insufflation was removed from the abdomen and the epigastric port site was closed with 0 Vicryl suture in the fascia using a Stewart Cristopher, 3 O Vicryl in the subcutaneous layers, and 4 Monocryl in the skin. The remaining port sites were closed with 4 Monocryl in the skin. Each port site was sealed with Dermabond. Local anesthetic was given at each of the port sites and in the fascia. This concluded the procedure. At this point the needle sponge and instrument counts were correct. The gallbladder was passed off the table for pathology. Patient was awakened from anesthesia and extubated. He was transferred to the postanesthesia care unit in stable condition. Complications: none Post-operative Condition: stable Disposition: PACU
[2019-08-26] MEDS: ONDANSETRON 4 MG/2 ML INJ IV (11:18)
--- NOTE | 2019-08-26 11:28 | SUR.PHASEI ---
Patient tolerated ice chips and grape juice. Sitting up in stretcher eating pudding. VSS.
[2019-08-26] MEDS: OXYCODONE IR 5 MG TABLET PO (11:31)
== END 2019-08-26 12:05 | disposition home or self-care (01) ==
PROVIDERS: PCP Family Medicine; Visit Provider Surgery
PROC: 0FT44ZZ Resection of Gallbladder, Percutaneous Endoscopic Approach (ICD-10-PCS; CPT 47562; principal; 2019-08-26 08:45)
DX: K80.20 Calculus of gallbladder without cholecystitis without obstruction (principal); E11.9 Type 2 diabetes mellitus without complications; F32.9 Major depressive disorder, single episode, unspecified; Z90.49 Acquired absence of other specified parts of digestive tract; G89.29 Other chronic pain; M54.9 Dorsalgia, unspecified; N40.0 Benign prostatic hyperplasia without lower urinary tract symptoms; I10 Essential (primary) hypertension; Z79.84 Long term (current) use of oral hypoglycemic drugs
CPT/HCPCS: 47563; J2250; J2405; J2543; J2704; J3010

== ENCOUNTER 2020-10-22 15:46 | Emergency (ER) | payer OTHER, SELFPAY ==
[2020-10-22 16:12] VITALS: BP 133/79; PULSE 62; RESP 16; O2SAT 100; BMI 25.8
--- NOTE | 2020-10-22 19:42 | PC.NURSE ---
RN checked on pt @ 192-he was in his room. At 1929 pt was no longer in room; not found on the unit.
== END 2020-10-22 19:52 | disposition left against medical advice (07) ==
PROVIDERS: Emergency Provider Emergency Medicine; PCP Family Medicine
DX: F41.0 Panic disorder [episodic paroxysmal anxiety] (principal)
CPT/HCPCS: 82962; 99281